=== PATIENT | male | born 1955 | race Caucasian/White ===

== ENCOUNTER 2017-04-24 13:59 | Emergency (ER) | payer BC ==
[~2017-04-24] VITALS: Ht 177.8 cm; Wt 77.0 kg
[2017-04-24 14:03] VITALS: TEMP 36.7; Ht 177.8 cm; Wt 77.0 kg
[2017-04-24] MEDS ORDERED: SODIUM CHLORIDE 0.9% 1000ML 1,000 ML IV STA (14:20)
[2017-04-24 14:50] LABS: BASO % 0.4 %; BASO ABS # 0.03 K/uL (0-0.2); COMPLETE YES; EOS % 0.1 %; IG% 0.1 %; LYMPH % 11.7 %; LYMPH ABS # 0.93 K/uL (1.2-3.4); MEAN CELL VOLUME 90.4 fL (80-100); MEAN CORPUSCULAR HEMOGLOBIN 31.2 pg (25-34); MEAN CORPUSCULAR HGB CONC 34.6 g/dl (32-36); MEAN PLATELET VOLUME 10.5 fL (7.4-10.4); MONO % 16.5 %; NEUT % 71.2 %; PLATELET COUNT 169 K/uL (130-400); RED BLOOD COUNT 5.09 M/uL (4.7-6.1); WHITE BLOOD COUNT 7.96 K/uL (4.8-10.8)
[2017-04-24 14:59] LABS: URINE APPEARANCE CLEAR (CLEAR); URINE BILIRUBIN NEG (NEG); URINE COLOR DK YELLOW; URINE NITRITE NEG (NEG); URINE PH 5.5 (4.5-7.5); URINE SPECIFIC GRAVITY 1.029 (1.000-1.030); UROBILINOGEN POS (NEG); ZZUR CULT IF INDIC CLEAN CATCH NO
--- NOTE | 2017-04-24 15:01 | DIAGNOSTIC IMAGING REPORT ---
CHEST ONE VIEW PORTABLE CLINICAL HISTORY: Weakness. COMPARISON STUDY: No previous studies for comparison. FINDINGS: Lung volumes are normal. There is no pneumothorax or pleural effusion. Note is made of a 1.8 cm nodular opacity lateral to the left hilum. There is made of a possible hazy right suprahilar opacity. There is no evidence of pulmonary edema. Cardiomediastinal silhouette is normal. There are cholecystectomy clips. IMPRESSION: 1. 1.8 cm nodular opacity lateral to the left hilum. A chest CT is recommended to exclude a pulmonary nodule. 2. Equivocal hazy right suprahilar opacity which can be assessed on chest CT. Electronically signed by: Tesfaye Chao M.D. 04/24/2017 3:00 PM Dictated Date/Time: 04/24/2017 2:57 PM
--- NOTE | 2017-04-24 15:01 | EMERGENCY ROOM VISIT NOTE ---
History Report prepared by Jagdish: Chris Keys Under the Supervision of: Dr. Bharat Huggins D.O. First contact with patient: 14:08 Chief Complaint: ILLNESS Stated Complaint: HEADACHE,SWELLING, REDNESS OF L FOOT,CHILLS,TIRED History of Present Illness The patient is a 62 year old male who presents to the Emergency Room with complaints of a worsening left foot infection beginning two days ago. He states that his symptoms began with a "redness" on the top of his foot, but states that it appears more like a bruise now. He states that he thought that he likely had poison trini, because he was working in the [employer] while wearing [employer]cs. The patient denies feeling any pain or stings. He states that he just noticed that his foot was itchy. He also complains of chills, fatigue, and an intermittent headache. The patient does not currently have his headache, and states that the most recent time he had it was yesterday. He notes that he has experienced some pain in his teeth and ears along with headache. He also notes that he woke up this morning and was not able to open his right eye fully, but that has since resolved. Patient family noticed no changes please, facial droop , or any other complaint. Pt denies other rashes, abdominal pain, change in vision, joint pain, fevers, chest pain, shortness of breath, nausea, vomiting, diarrhea, pain with urination, and melena. Patient denies any weakness or numbness in his arms or legs. Source of History: patient Onset: Two days ago Position: foot (left) Quality: other (infection) Timing: worsening Associated Symptoms: + chills, + headache (intermittent with ear and dental pain), + fatigue, No fevers, No sorethroat, No chest pain, No SOB, No nausea, No vomiting, No abdominal pain, No melena, No diarrhea, No urinary symptoms Note: Pt denies change in vision, joint pain. Review of Systems See HPI for pertinent positives & negatives. A total of 10 systems reviewed and were otherwise negative. Past Medical & Surgical Medical Problems: (1) No Known Active Medical Problems Family History No pertinent family history stated. Social History Smoking Status: Never Smoker Marital Status: Housing Status: lives with family Current/Historical Medications Scheduled Doxycycline Hyclate (Vibramycin), 100 MG PO BID Allergies Coded Allergies: No Known Allergies (Verified , 08/28/13) Physical Exam Vital Signs Date Time Temp Pulse Resp B/P (MAP) Pulse Ox O2 Delivery O2 Flow Rate FiO2 04/24/17 16:50 74 18 131/83 97 Room Air 04/24/17 15:45 72 17 129/82 97 Room Air 04/24/17 14:03 36.7 97 16 160/93 96 Room Air Physical Exam GENERAL: Sitting up in bed, alert, well appearing, well nourished, no distress, non-toxic EYE EXAM: normal conjunctiva, PERRL and EOM's intact OROPHARYNX: no exudate, no erythema, lips, buccal mucosa, and tongue normal and mucous membranes are moist NECK: supple, no nuchal rigidity, no adenopathy, non-tender. Negative Brudzinski. LUNGS: Clear to auscultation. Normal chest wall mechanics HEART: no murmurs, S1 normal and S2 normal ABDOMEN: abdomen soft, non-tender, normo-active bowel sounds, no masses, no rebound or guarding. BACK: Back is symmetrical on inspection and there is no deformity, no midline tenderness, no CVA tenderness. UPPER EXTREMITIES: upper extremities are grossly normal. LOWER EXTREMITIES: No pitting edema. Erythema on the dorsal surface of the left foot including the third and fourth digit tracking to the mid-foot. Slight purple discoloration in the middle with surrounding erythema. NEURO EXAM: Normal sensorium, cranial nerves II-XII intact, normal speech, no weakness of arms, no weakness of legs. No drift. Finger to nose intact. Gross sensation intact. Medical Decision & Procedures ER Provider Diagnostic Interpretation: Radiology results as stated below per my review and the radiologist's interpretation: CT OF THE HEAD WITHOUT CONTRAST FINDINGS: No acute intracranial hemorrhage, midline shift or mass effect is present. Ventricular system is normal. Basilar cisterns are patent. There are no extra-axial collections. Mckenzie-white differentiation is maintained. There are no findings to suggest acute dural sinus thrombosis or acute territorial infarct. There are no significant calvarial abnormalities. There is mild mucosal thickening of the sinuses. Mastoid air cells are clear. IMPRESSION: No acute intracranial findings. Electronically signed by: Tesfaye Chao M.D. CT OF THE CHEST WITH IV CONTRAST FINDINGS: No enlarged axillary, mediastinal or hilar lymph nodes are present. Central airways are patent. There is no consolidation to suggest pneumonia. Dependent groundglass opacities reflect atelectasis. The possible left lung nodule shown on prior chest radiograph was artifactual. There is no pneumothorax or pleural effusion. There is no pneumomediastinum. Note is made of a 5 mm left lower lobe nodule shown image 198. No skeletal abnormalities are present. The abdomen and pelvis will be reported separately but a 9 mm right renal calculus is noted. The gallbladder surgically absent. There are a few subcentimeter hypodense hepatic lesions. IMPRESSION: 1. No acute intrathoracic findings. 2. The possible left lung nodule shown on prior chest radiograph was artifactual. 3. 5 mm left lower lobe nodule which is likely benign however, a follow-up chest CT in 6 months to ensure stability is recommended. 4. 9 mm right renal calculus. Electronically signed by: Tesfaye Chao M.D. CT OF THE ABDOMEN AND PELVIS WITH CONTRAST FINDINGS: The chest will be reported separately. There may be fatty infiltration of the liver. A few subcentimeter hepatic lesions are too small to characterize but are likely benign. There is no biliary ductal dilatation status post cholecystectomy. There is no peripancreatic infiltration. A splenule is present. The spleen, adrenal glands and kidneys are normal with the exception of a 9 mm nonobstructing right renal calculus. There are no ureteral calculi. The prostate is mildly enlarged. There is sigmoid diverticulosis without evidence for acute diverticulitis. There is no obstruction. Caliber and wall thickness of small and large bowel are normal. IMPRESSION: 1. No acute process within the abdomen or pelvis. 2. No biliary ductal dilatation status post cholecystectomy. 3. Possible fatty infiltration of the liver. Electronically signed by: Tesfaye Chao M.D. CHEST ONE VIEW PORTABLE FINDINGS: Lung volumes are normal. There is no pneumothorax or pleural effusion. Note is made of a 1.8 cm nodular opacity lateral to the left hilum. There is made of a possible hazy right suprahilar opacity. There is no evidence of pulmonary edema. Cardiomediastinal silhouette is normal. There are cholecystectomy clips. IMPRESSION: 1. 1.8 cm nodular opacity lateral to the left hilum. A chest CT is recommended to exclude a pulmonary nodule. 2. Equivocal hazy right suprahilar opacity which can be assessed on chest CT. Electronically signed by: Tesfaye Chao M.D. Laboratory Results 04/24/17 14:30 Red Blood Count 5.09, Mean Corpuscular Volume 90.4, Mean Corpuscular Hemoglobin 31.2, Mean Corpuscular Hemoglobin Concent 34.6, Mean Platelet Volume 10.5, Neutrophils (%) (Auto) 71.2, Lymphocytes (%) (Auto) 11.7, Monocytes (%) (Auto) 16.5, Eosinophils (%) (Auto) 0.1, Basophils (%) (Auto) 0.4, Neutrophils # (Auto ) 5.67, Lymphocytes # (Auto) 0.93, Monocytes # (Auto) 1.31, Eosinophils # (Auto ) 0.01, Basophils # (Auto) 0.03 04/24/17 14:30 Test 04/24/17 14:30 04/24/17 14:40 White Blood Count 7.96 K/uL (4.8-10.8) Red Blood Count 5.09 M/uL (4.7-6.1) Hemoglobin 15.9 g/dL (14.0-18.0) Hematocrit 46.0 % (42-52) Mean Corpuscular Volume 90.4 fL (80-100) Mean Corpuscular Hemoglobin 31.2 pg (25-34) Mean Corpuscular Hemoglobin Concent 34.6 g/dl (32-36) Platelet Count 169 K/uL (130-400) Mean Platelet Volume 10.5 fL (7.4-10.4) Neutrophils (%) (Auto) 71.2 % Lymphocytes (%) (Auto) 11.7 % Monocytes (%) (Auto) 16.5 % Eosinophils (%) (Auto) 0.1 % Basophils (%) (Auto) 0.4 % Neutrophils # (Auto) 5.67 K/uL (1.4-6.5) Lymphocytes # (Auto) 0.93 K/uL (1.2-3.4) Monocytes # (Auto) 1.31 K/uL (0.11-0.59) Eosinophils # (Auto) 0.01 K/uL (0-0.5) Basophils # (Auto) 0.03 K/uL (0-0.2) RDW Standard Deviation 42.2 fL (36.4-46.3) RDW Coefficient of Variation 12.7 % (11.5-14.5) Immature Granulocyte % (Auto) 0.1 % Immature Granulocyte # (Auto) 0.01 K/uL (0.00-0.02) Anion Gap 9.0 mmol/L (3-11) Est Creatinine Clear Calc Drug Dose 60.1 ml/min Estimated GFR () 67.3 Estimated GFR (Non- 58.1 BUN/Creatinine Ratio 14.1 (10-20) Calcium Level 9.2 mg/dl (8.5-10.1) Total Bilirubin 2.0 mg/dl (0.2-1) Direct Bilirubin 0.4 mg/dl (0-0.2) Aspartate Amino Transf (AST/SGOT) 74 U/L (15-37) Alanine Aminotransferase (ALT/SGPT) 91 U/L (12-78) Alkaline Phosphatase 143 U/L (45-117) Total Protein 7.0 gm/dl (6.4-8.2) Albumin 3.6 gm/dl (3.4-5.0) Lipase 152 U/L (73-393) Lyme Disease IgG Antibody NEG (NEG) Urine Color DK YELLOW Urine Appearance CLEAR (CLEAR) Urine pH 5.5 (4.5-7.5) Urine Specific [place] 1.029 (1.000-1.030) Urine Protein 1+ (NEG) Urine Glucose (UA) NEG (NEG) Urine Ketones TRACE (NEG) Urine Occult Blood TRACE (NEG) Urine Nitrite NEG (NEG) Urine Bilirubin NEG (NEG) Urine Urobilinogen POS (NEG) Urine Leukocyte Esterase NEG (NEG) Urine WBC (Auto) 1-5 /hpf (0-5) Urine RBC (Auto) 0-4 /hpf (0-4) Urine Hyaline Casts (Auto) 1-5 /lpf (0-5) Urine Epithelial Cells (Auto) 5-10 /lpf (0-5) Urine Bacteria (Auto) NEG (NEG) Laboratory results per my review. Medications Administered Medications (Trade) Dose Ordered Sig/Piero Route Start Time Stop Time Status Last Admin Dose Admin Sodium Chloride 1,000 ml @ 999 mls/hr Q1H1M STAT IV 04/24/17 14:20 04/24/17 15:20 DC 04/24/17 14:20 999 MLS/HR Doxycycline Hyclate (Vibramycin Cap) 100 mg ONE ONCE PO 04/24/17 16:30 04/24/17 16:31 DC 04/24/17 16:49 100 MG ECG Indication: other (fatigue) Rate (beats per minute): 83 Rhythm: sinus rhythm Findings: no ectopy, other (Normal intervals. Scooping of ST segments in inferior leads. ) Comparison ECG Date: June 12, 2010 Change: ST Scooping is new. ED Course ED COURSE: Vital signs were reviewed and showed hypertension. The patients medical record was reviewed The above diagnostic studies were performed and reviewed. ED treatments and interventions as stated above. 1412: The patient was evaluated in room B11B. A complete history and physical examination was performed. 1420: Ordered Sodium Chloride 1000 ml @ 999 mls/hr IV. 1518: I updated the patient on his test results. He notes that he has a history of a cholecystectomy. 1630: Ordered Vibramycin Cap 100 mg PO. 1640: Upon reevaluation, the patient is resting comfortably. I discussed my findings with the patient and he understands and agrees with the treatment plan. Based on the patients age, coexisting illnesses, exam and lab findings the decision to treat as an outpatient was made. The patient remained stable while under my care. The patient appeared well at the time of discharge. Medical Decision Differential diagnosis includes etiologies such as cellulitis, abscess, MRSA infection, DVT, necrotizing fasciitis, dermatitis, drug eruption, as well as others were entertained. Patient is a 62-year-old male who presents the ER for erythema on the top of his left foot. He also admits to intermittent headache for the past 2 days but has not had a headache today. No fevers above 100.4. No signs of meningitis or encephalitis. The only other thing that he has noticed is when he woke up this morning he felt like he had trouble opening his right eye. He had no pain or visual complaints. No other symptoms to suggest a stroke. He is completely neurologically intact. Labs and CT head were obtained. Labs show a mild transaminitis and elevation in his bilirubin. He has a previous cholecystectomy. No abdominal pain. No nausea, or vomiting. Previous cholecystectomy is the likely cause of the elevated bilirubin. LFTs could be elevated secondary to line which was IgM positive. Patient was placed on Doxy discharged with Lyme. Although I favor the redness on his foot is likely more of a cellulitis with his IgM positive he was treated for Lyme and the Doxy would cover cellulitis as well. Discussed with Pt concerning signs and symptoms to watch out for. Pt was instructed to follow up with their PCP and discussed with the patient their option to return to the ED at anytime for persistent or worsening symptoms. The appropriate anticipatory guidance and out-patient management, including indications for return to the emergency department, were explained at length to the patient and understood. Patient will follow-up with his PCP for the transaminitis and chest nodule as stated on discharge instructions. Impression Primary Impression: Acute Lyme disease Additional Impressions: Transaminitis Pulmonary nodule Scribe Attestation The scribe's documentation has been prepared under my direction and personally reviewed by me in its entirety. I confirm that the note above accurately reflects all work, treatment, procedures, and medical decision making performed by me. Departure Information Dispostion Home / Self-Care Prescriptions Doxycycline Hyclate (VIBRAMYCIN) 100 Mg Cap 100 MG PO BID for 21 Days, CAP Prov: Bharat Huggins, DO 04/24/17 Referrals Akbar Johns M.D. (PCP) Forms HOME CARE DOCUMENTATION FORM, IMPORTANT VISIT INFORMATION, WORK / SCHOOL INSTRUCTIONS Patient Instructions Bites Tick, Borrelia Antibody Blood, Doxycycline tablets or capsules, My [employer] Additional Instructions Please follow up with your primary care doctor with in the next 24 hours. Any worsening of your symptoms, please return to the ED immediately. This includes severe headache, stiff neck, confusion, or any other concerning signs or symptoms from your standpoint. Please take Motrin or Tylenol for muscle aches and joint aches. Please take doxycycline as prescribed. Please do not drink alcohol with this medication. Please take this medication with food. 5mm left lower lobe nodule which is likely benign however, a follow-up chest CT in 6 months to ensure stability is recommended. Problem Qualifiers
--- NOTE | 2017-04-24 15:11 | DIAGNOSTIC IMAGING REPORT ---
CT OF THE HEAD WITHOUT CONTRAST CLINICAL HISTORY: Headache. COMPARISON STUDY: No previous studies for comparison. CT DOSE: 537.48 mGy.cm TECHNIQUE: Helical axial images of the head were obtained without IV contrast. Automated exposure control was utilized for the study. FINDINGS: No acute intracranial hemorrhage, midline shift or mass effect is present. Ventricular system is normal. Basilar cisterns are patent. There are no extra-axial collections. Mckenzie-white differentiation is maintained. There are no findings to suggest acute dural sinus thrombosis or acute territorial infarct. There are no significant calvarial abnormalities. There is mild mucosal thickening of the sinuses. Mastoid air cells are clear. IMPRESSION: No acute intracranial findings. Electronically signed by: Tesfaye Chao M.D. 04/24/2017 3:10 PM Dictated Date/Time: 04/24/2017 3:06 PM
[2017-04-24 15:12] LABS: BUN/CREATININE RATIO 14.1 (10-20); CALCIUM 9.2 mg/dl (8.5-10.1); CREATININE 1.3 mg/dl (0.60-1.40); POTASSIUM 3.7 mmol/L (3.5-5.1)
[2017-04-24 15:12] LABS: MANUAL MICROSCOPIC REQUIRED? NO; REVIEW REQ? NO
[2017-04-24 15:48] LABS: LYME DISEASE AB IGG NEG (NEG)
[2017-04-24 15:57] LABS: LYME DISEASE AB IGM POS (NEG)
[2017-04-24] MEDS ORDERED: OPTIRAY 320 IV PRN (16:15)
--- NOTE | 2017-04-24 16:23 | DIAGNOSTIC IMAGING REPORT ---
CT OF THE CHEST WITH IV CONTRAST CLINICAL HISTORY: Chest pain. Fatigue. COMPARISON STUDY: Chest radiograph performed earlier today. TECHNIQUE: Following IV administration of 115 mL of Optiray-320, helical axial images of the chest were obtained. Images were viewed in the axial, sagittal and coronal planes. IV contrast was administered without complication. CT DOSE: 606.21 mGy.cm FINDINGS: No enlarged axillary, mediastinal or hilar lymph nodes are present. Central airways are patent. There is no consolidation to suggest pneumonia. Dependent groundglass opacities reflect atelectasis. The possible left lung nodule shown on prior chest radiograph was artifactual. There is no pneumothorax or pleural effusion. There is no pneumomediastinum. Note is made of a 5 mm left lower lobe nodule shown image 198. No skeletal abnormalities are present. The abdomen and pelvis will be reported separately but a 9 mm right renal calculus is noted. The gallbladder surgically absent. There are a few subcentimeter hypodense hepatic lesions. IMPRESSION: 1. No acute intrathoracic findings. 2. The possible left lung nodule shown on prior chest radiograph was artifactual. 3. 5 mm left lower lobe nodule which is likely benign however, a follow-up chest CT in 6 months to ensure stability is recommended. 4. 9 mm right renal calculus. Electronically signed by: Tesfaye Chao M.D. 04/24/2017 4:21 PM Dictated Date/Time: 04/24/2017 4:14 PM
[2017-04-24] MEDS ORDERED: DOXYCYCLINE HYCLATE 100 MG CAP PO ONE (16:30)
--- NOTE | 2017-04-24 16:31 | DIAGNOSTIC IMAGING REPORT ---
CT OF THE ABDOMEN AND PELVIS WITH CONTRAST CLINICAL HISTORY: Elevated liver function tests. COMPARISON STUDY: Right upper quadrant ultrasound April 03, 2010. TECHNIQUE: Following IV administration of 115 mL of Optiray-320, axial images of the abdomen and pelvis were obtained from the lung bases to the proximal femurs. Images were reviewed in the axial, sagittal, and coronal planes. IV contrast was administered without complication. FINDINGS: The chest will be reported separately. There may be fatty infiltration of the liver. A few subcentimeter hepatic lesions are too small to characterize but are likely benign. There is no biliary ductal dilatation status post cholecystectomy. There is no peripancreatic infiltration. A splenule is present. The spleen, adrenal glands and kidneys are normal with the exception of a 9 mm nonobstructing right renal calculus. There are no ureteral calculi. The prostate is mildly enlarged. There is sigmoid diverticulosis without evidence for acute diverticulitis. There is no obstruction. Caliber and wall thickness of small and large bowel are normal. IMPRESSION: 1. No acute process within the abdomen or pelvis. 2. No biliary ductal dilatation status post cholecystectomy. 3. Possible fatty infiltration of the liver. Electronically signed by: Tesfaye Chao M.D. 04/24/2017 4:29 PM Dictated Date/Time: 04/24/2017 4:24 PM
[2017-04-24] MEDS ORDERED: DOXY100C PO (16:39)
[2017-04-24 16:50] VITALS: BP 131/83; PULSE 74; O2SAT 97
[2017-04-29 08:33] LABS: 18KDIGG BAND NONREACTIVE (NONREACTIVE); 23KDIGG BAND REACTIVE (NONREACTIVE); 23KDIGM BAND REACTIVE (NONREACTIVE); 28KDIGG BAND NONREACTIVE (NONREACTIVE); 30KDIGG BAND NONREACTIVE (NONREACTIVE); 39KDIGG BAND REACTIVE (NONREACTIVE); 39KDIGM BAND NONREACTIVE (NONREACTIVE); 41KDIGG BAND REACTIVE (NONREACTIVE); 41KDIGM BAND REACTIVE (NONREACTIVE); 45KDIGG BAND REACTIVE (NONREACTIVE); 58KDIGG BAND NONREACTIVE (NONREACTIVE); 66KDIGG BAND REACTIVE (NONREACTIVE); 93KDIGG BAND NONREACTIVE (NONREACTIVE)
== END 2017-04-24 17:03 | disposition home or self-care (01) ==
LOC: C.EDB 14:01
DX: A69.20 Lyme disease, unspecified (principal); R74.0 Nonspecific elevation of levels of transaminase and lactic acid dehydrogenase [LDH]; R91.1 Solitary pulmonary nodule; Z90.49 Acquired absence of other specified parts of digestive tract; L03.116 Cellulitis of left lower limb

== ENCOUNTER → 2017-11-02 | Outpatient (CLI) | payer OTHER ==
[~2017-11-02] MED LIST: OPTIRAY 320 IV PRN
--- NOTE | 2017-11-02 09:32 | DIAGNOSTIC IMAGING REPORT ---
(CHEST) THORAX WITH CT DOSE: 294.58 mGy.cm HISTORY: Pulmonary nodule R91.1 Pulmonary nodule6 month follow-[id number] TECHNIQUE: Multiaxial CT images of the chest were performed following the intravenous administration of contrast. A dose lowering technique was utilized adhering to the principles of ALARA. COMPARISON: 04/24/2017 FINDINGS: The lungs are clear. The mediastinal vascular structures are within normal limits. No mediastinal or hilar lymphadenopathy. No pleural effusion or pneumothorax. Limited views of the upper abdomen demonstrate a normal liver and spleen. 5 mm unchanged nodular density left lung base. No new or interval findings. No significant mediastinal or hilar conchita pathology. Several shotty axillary nodes unchanged. IMPRESSION: 5 mm nodular density left lung base unchanged from the prior exam. A 12 month follow-up is suggested. The above report was generated using voice recognition software. It may contain grammatical, syntax or spelling errors. Electronically signed by: James Rodríguez M.D. 11/02/2017 9:31 AM Dictated Date/Time: 11/02/2017 9:25 AM
== END | disposition home or self-care (01) ==
LOC: C.CTS 08:39
PROVIDERS: ATTEND Physician Assistant Medical
DX: R91.1 Solitary pulmonary nodule (principal)